=== PATIENT | female | born 1965 | race Caucasian/White ===

== ENCOUNTER 2018-10-31 18:58 | Emergency (ER) | payer MEDICARE, MEDICAID, SELFPAY ==
[2018-10-31 18:58] VITALS: BP 149/87; PULSE 100; RESP 16; TEMP 36.6; O2SAT 96; BMI 38.0
[2018-10-31 19:34] LABS: Absolute Lymphocyte Count 1.42 X10^3/ul (0.83-4.51); Absolute Neutrophil Count 9.2 X10^3/uL (2.0-7.7); Basophil# 0.03 X10^3/uL; Basophil% 0.3 % (0-1); Eosinophil# 0.12 X10^3/uL; Hematocrit 47.9 % (37-47); Hemoglobin 16.5 g/dl (12.0-15.0); Lymphocyte # 1.42 X10^3/ul (4.0); Lymphocyte % 12.1 % (19-41); Mean Corp Hgb Conc 34.4 g/gl (32-36); Mean Corpuscular Hgb 29.5 pg (27.0-32.0); Mean Corpuscular Volume 85.5 fL (81-99); Mean Platelet Vol. 10.9 fl (6.2-12.0); Monocyte# 0.93 X10^3/uL; Monocyte% 7.9 % (0-10); Neutrophil # 9.18 X10^3/uL (2.7-7.7); Neutrophil % 78.4 % (47-70); Platelet Count 262 K/mm3 (150-450); RBC Distribution Width CV 13.5 % (11.6-14.6); RBC Distribution Width SD 42.3 fl (35.1-43.9); White Blood Count 11.7 K/mm3 (4.4-11.0)
[2018-10-31 19:46] LABS: POSITIVE COUNT NO; POSITIVE DIFFERENTIAL NO; POSITIVE MORPHOLOGY NO
[2018-10-31 19:47] LABS: Anion Gap 10 (5-15); BUN 9 mg/dL (7-18); BUN/Creat Ratio 7.8 RATIO (10-20); Chloride 100 mmol/L (98-107); Creatinine, Serum 1.16 mg/dL (0.55-1.02); EST Glomerular Filtration Rate 52 mL/min (>60); Est Glom Filt Rate - Afr Amer 63 mL/min (>60); Estimated Creatinine Clearance 57.88 ml/min; Glucose 404 mg/dL (74-106); Sodium Level 137 mmol/L (136-145)
[2018-10-31 19:58] VITALS: BP 147/88; PULSE 97; RESP 17; O2SAT 95
[2018-10-31 20:02] LABS: Internal QC Validated? YES +Cl - CLEAR BKGD; Pregnancy, Serum, hCG Quali. NEGATIVE Negative
--- NOTE | 2018-10-31 20:03 | CT_ITS ---
STUDY: CT ABDOMEN AND PELVIS WITHOUT CONTRAST REASON FOR EXAM: Female, 53 years old. Right-sided flank pain. RADIATION DOSAGE (If Supplied By Facility): CTDIvol = ( 22.88 ) mGy, DLP = ( 1257.42 ) mGycm TECHNIQUE: Transaxial images were obtained from the dome of the diaphragm to the symphysis pubis without oral contrast, and without intravenous contrast. Sagittal and coronal images were reconstructed. Individualized dose optimization techniques were used for this CT. COMPARISON: CT of the abdomen and pelvis dated January 05, 2014. FINDINGS: The visualized lung bases are unremarkable. The visualized portions of the heart are within normal limits. There is decreased attenuation of the liver consistent with steatosis. The liver is enlarged measuring up to 25.5 cm in greatest dimension. Normal gallbladder and extrahepatic biliary system. Normal spleen. Normal pancreas. Normal bilateral adrenal glands. There is a moderate dilatation of the right renal collecting system similar to previous CT. There is a nonobstructing calculus in the right renal collecting system measuring up to 1.8 cm in greatest dimension. There is moderate right-sided hydroureter. There is a distal right ureteral calculus measuring approximately 4.4 mm. Appears to be multifocal areas of parenchymal loss with a lower pole left kidney posterolaterally to previous ischemia or infection. This is probably unchanged since the previous CT There is a small hiatal hernia. There is no evidence for dilated bowel, ascites or pneumoperitoneum. The small bowel has a grossly normal appearance. Stool is visible throughout the descending and transverse colon with scattered diverticula. The descending colon is not distended which gives the appearance of thickened davey. There is non-visualization of the appendix. There is minimal atherosclerotic calcification of the abdominal aorta, without a demonstrated aneurysm. Normal inferior vena cava. Normal retroperitoneum. Normal urinary bladder. There is absence of the uterus consistent with a prior hysterectomy. Normal abdominal wall. There are diffuse degenerative changes of the visualized spine. CT/Abdomen/Pelvis without Cont IMPRESSION: 1. Moderate right-sided hydronephrosis and hydroureter secondary to a distal ureteral calculus. 2. Nonobstructing right-sided renal calculus. 3. Hepatomegaly and hepatic steatosis. 4. There is a small hiatal hernia. Electronically Signed: Ale Story MD at 21:11 EDT , Service support ,
[2018-10-31] MEDS: Ketorolac 30 MG/ML Syringe IV (20:30)
[2018-10-31] MEDS: 0.9% Normal Saline 1,000 ML 999 ML IV (20:30)
[2018-10-31 20:37] LABS: Bacteria 0 SEEN /hpf (None Seen); Mucous, Urine 0 SEEN /hpf (<or=2+); Red Blood Cells-Urine 0 SEEN /hpf (0-5)
[2018-10-31 20:39] LABS: Color, Urine Yellow (Yellow); Glucose, Dipstick 1000 mg/dl (Normal); Ketone-Dipstick 15 mg/dl (Negative); Leukocyte Esterase-Dipstick 25 /ul (Negative); Nitrite-Dipstick Negative (Negative); Occult Blood-Urine 150 /ul (Negative); Protein-Dipstick Negative (Negative); Urine Bilirubin Dipstick Negative (Negative); Urine Clarity Sl. Cloudy (Clear); Urine Urobilinogen Normal (Normal)
[2018-10-31 20:48] LABS: Squamous Epithelial Cells - UA 0-5 SEEN /hpf (5-10); White Blood Cells 0-5 SEEN /hpf (0-5)
[2018-10-31 21:00] VITALS: BP 157/87; PULSE 89; RESP 16; O2SAT 93
--- NOTE | 2018-10-31 22:58 | ED.VISSUMM ---
- ER Visit Summary Date of Service: 10/31/18 Chief Complaint: Flank pain History of Present Illness: The patient is a 53 F with right flank pain that started at 5 PM today. It is severe. It came on suddenly. Patient has a history of kidney stones. Physical Examination: Afebrile and vital signs unremarkable. Right flank tender to palpation. Abdomen otherwise nontender. No other pertinent findings. Test Results: Urinalysis unremarkable. test negative. Glucose 404, creatinine 1.16. White count 11.[address] abdomen and pelvis showed right-sided hydroureter and hydronephrosis with a 4.4 mm stone in the distal ureter. Other incidental findings as listed in the separate CT report. Emergency Department Course and Treatment: Patient was treated with Toradol and fluids. She had improvement in her pain. History and exam and work-up were consistent with a ureter stone. Patient has an established urologist and will follow-up as an outpatient. She is in pain management and will use her home Percocet. She was advised to return for intractable pain. She was prescribed Flomax and Zofran. Patient will monitor her sugar and take her diabetes medications as prescribed. Discharge. Treatment Plan: As above Disposition: Discharge Impression: Ureteral colic This note was generated with [employer] dictation software. It may contain incorrect words, spelling, and punctuation that were not noted in review of the chart prior to signing ED Disposition - Plan for ED Patient: Referrals: Efrain Du,Out of [Primary Care Provider] -
--- NOTE | 2018-10-31 23:01 | ED.DEP ---
ED Disposition - Plan for ED Patient: Instructions: ED Stone Renal W Colic, ED Hyperglycemia Diabetic Prescriptions: Ondansetron [Zofran Odt] 4 mg PO Q8H PRN PRN #10 tab PRN Reason: Nausea Tamsulosin HCl [Flomax] 0.4 mg PO DAILY #7 cap Additional Instructions: follow up with your urologist
[2018-10-31 23:04] VITALS: BP 150/78; PULSE 79; RESP 14; O2SAT 96
== END 2018-10-31 23:08 | disposition home or self-care (01) ==
LOC: ED 20:21
PROVIDERS: Emergency Provider Emergency Medicine
DX: N13.2 Hydronephrosis with renal and ureteral calculous obstruction (principal); K44.9 Diaphragmatic hernia without obstruction or gangrene; K76.0 Fatty (change of) liver, not elsewhere classified; E11.9 Type 2 diabetes mellitus without complications; Z87.442 Personal history of urinary calculi; Z79.84 Long term (current) use of oral hypoglycemic drugs; Z79.899 Other long term (current) drug therapy; Z72.0 Tobacco use
CPT/HCPCS: 74176; 80048; 81001; 84703; 85025; 96361; 96374; 99284; J7030; A4216

== ENCOUNTER 2019-05-12 07:34 | Emergency (ER) | payer MEDICARE, SELFPAY ==
[2019-05-12 07:35] VITALS: BP 165/116; PULSE 90; RESP 24; TEMP 36.6; BMI 39.5
--- NOTE | 2019-05-12 07:46 | CT_ITS ---
STUDY: CT ABDOMEN AND PELVIS WITHOUT CONTRAST REASON FOR EXAM: Female, 53 years old. RADIATION DOSAGE (If Supplied By Facility): CTDIvol = ( 22.04 ) mGy, DLP = ( 1194.82 ) mGycm TECHNIQUE: Transaxial images were obtained from the dome of the diaphragm to the symphysis pubis without oral contrast, and without intravenous contrast. Sagittal and coronal images were reconstructed. Individualized dose optimization techniques were used for this CT. COMPARISON: None. FINDINGS: The visualized lung bases are unremarkable. The visualized portions of the heart are within normal limits. The liver is enlarged measures 24 cm in its craniocaudal dimension. No obvious focal lesion noted within the liver. Spleen is not enlarged. Both adrenal glands are within normal limits. The right kidney is slightly malrotated with evidence of hydronephrosis and dilated ureter down to the pelvis where there is a small stone(0.5cm) above the UV junction causing obstructive uropathy. There is exophytic calcified lesion measures 2.7 x 1.4 cm involving the posterior aspect of the malrotated kidney this is suspicious for tumor. The left kidney shows tiny calcification in the lower half of the kidney. Focal the atrophy seen in the lower aspect of the left kidney could be due to old pyelonephritis. No hydronephrosis is seen on the left side. Otherwise both kidneys are normal in size.. Normal visualized stomach. Normal small intestine. Normal colon. The appendix is visualized and appears normal. Normal abdominal aorta. Normal inferior vena cava. Normal retroperitoneum. Normal urinary bladder. Normal abdominal wall. Normal osseous structures. CT/Abdomen/Pelvis without Cont IMPRESSION: Smaller stone in the distal right ureter causing obstructive uropathy. Calcified lesion posterior aspect of the right kidney which is malrotated this is suspicious for 2 small to moderate. Hepatomegaly. Electronically Signed: Veronica Robertson, at 9:43 EST Tel , Service support ,
--- NOTE | 2019-05-12 07:47 | ED.VIS.GEN ---
History of Present Illness Chief Complaint: Flank Pain Informant: Patient Onset: Today, Hours - 3 Current Severity: Moderate Maximum Severity: Severe Narrative: Patient presents with right flank pain radiating into her right lower abdominal region. She has a history of kidney stones and this feels similar. This started about 3 hours ago and woke her up from sleep. She has no fever chills or dysuria. She has no chest pain shortness of breath. Pain is sharp stabbing and moderate but there have been episodes where it has been severe. Past Medical History - Allergies and Home Meds Allergies/Adverse Reactions: Allergies duloxetine [From Cymbalta] Allergy (Verified 05/12/19 07:37) Swelling povidone-iodine [From Betadine] Allergy (Verified 05/12/19 07:37) Swelling shellfish derived Allergy (Verified 05/12/19 07:37) Swelling soap [From Betadine] Allergy (Verified 05/12/19 07:37) Itching ivory soap Primary Care Physician: Po Ewing MD [Primary Care Provider] - Past Medical History: - - COPD, chronic renal insufficiency, diabetes. Hypertension Surgical History: hysterectomy, - - , multiple right kidney surgery for stones,hysterectomy, tubal ligation Smoking Status: Current every day smoker - Family History Maternal Family History: Reports: No pertinent history Paternal Family History: Reports: No pertinent history Sibling Family History: Reports: No pertinent history Review of Systems General: Denies: Fever ENT: Denies: Sore throat Cardiovascular: Denies: Chest pain Respiratory: Denies: Dyspnea, Cough Gastrointestinal: Reports: Abdominal pain, Nausea. Denies: Diarrhea, Constipation Genitourinary: Denies: Dysuria, Hematuria Musculoskeletal: Reports: Back pain Skin: Denies: Rash Neurological: Denies: Headache, Weakness Psych: Denies: Depression Endocrine: Denies: Polyuria Hematologic: Denies: Easy bruising Allergy: Denies: Uticaria Physical Exam Vital Signs/Narrative: Vital Signs Temp Pulse Resp BP 05/12/19 07:35 97.8 F 90 24 H 165/116 H General: Acute Distress Head: Normocephalic Eyes: Perrl, EOMI ENT: Moist mucous membranes Cardiovascular: Regular rate, Regular rhythm Respiratory: No distress, CTA bilaterally, - - It is documented that she is tachypneic, however when I saw her she was breathing at about 18/min. She had clear lungs Abdomen: Soft, - - There is some right lower abdominal tenderness most of her pain is in the right flank region : - - Deferred Back: CVA tenderness Extremities: Nontender, No edema Skin: Normal color Neurological: Normal Sensation Psychological: - - Somewhat anxious Diagnostic/Tx/Re-eval - Medical Decision Making Patient is found to have a 5 mm stone. This is distal ureter. Her pain is significantly improved. She has analgesia at home I will refer to urology. She does not have a urinary tract infection although she does have blood and glucose in her urine I am worried about an infection since both blood and glucose are nidus for infection. I will treat prophylactically Discharge stable condition ED Disposition - Plan for ED Patient: Disposition: Home or Assisted Living Diagnosis: Renal colic on right side, Right kidney stone Instructions: KIDNEY STONE w/ Colic Prescriptions: Smz/Tmp Ds [Bactrim Ds] 1 tab PO BID #10 tab Prescription Printed Tamsulosin HCl [Flomax] 0.4 mg PO DAILY #5 cap Prescription Printed Ondansetron [Zofran Odt] 4 mg PO Q8H PRN PRN #10 tab PRN Reason: Nausea Prescription Printed Referrals: Nuno Collins MD [STAFF PHYSICIAN] - 2 Days
[2019-05-12] MEDS: Ketorolac 30 MG/ML Syringe 15 MG IV (08:01)
[2019-05-12] MEDS: 0.9% Normal Saline 1,000 ML 1000 ML IV (08:01)
[2019-05-12] MEDS: HYDROmorphone 1 MG/ML Syringe IV (08:02)
[2019-05-12] MEDS: Ondansetron 4 MG/2 ML Vial IV (08:02)
[2019-05-12 08:08] LABS: Red Blood Cells-Urine 0 SEEN /hpf (0-5)
[2019-05-12 08:15] LABS: Absolute Lymphocyte Count 1.36 X10^3/uL (0.83-4.51); Absolute Neutrophil Count 6.5 X10^3/uL (2.0-7.7); Basophil# 0.08 X10^3/uL; Basophil% 0.9 % (0-1); Eosinophil# 0.12 X10^3/uL; Eosinophils% 1.4 % (0-5); Hematocrit 49.8 % (37-47); Hemoglobin 16.6 g/dL (12.0-15.0); Lymphocyte # 1.36 X10^3/ul (4.0); Lymphocyte % 15.5 % (19-41); Mean Corp Hgb Conc 33.3 g/dL (32-36); Mean Corpuscular Hgb 28.3 pg (27.0-32.0); Mean Platelet Vol. 10.8 fl (6.2-12.0); Monocyte# 0.67 X10^3/uL; Monocyte% 7.6 % (0-10); NRBC Flagged by Analyzer 0 % (0-5); Neutrophil # 6.49 X10^3/uL (2.7-7.7); Platelet Count 248 K/mm3 (150-450); RBC Distribution Width SD 40.3 fl (35.1-43.9); Red Blood Count 5.86 M/mm3 (4.2-5.4); White Blood Count 8.8 K/mm3 (4.4-11.0)
[2019-05-12 08:17] LABS: Color, Urine Yellow (Yellow); Glucose, Dipstick 1000 mg/dl (Normal); Ketone-Dipstick 5 mg/dl (Negative); Leukocyte Esterase-Dipstick Negative /ul (Negative); Nitrite-Dipstick Negative (Negative); Occult Blood-Urine 250 /ul (Negative); Protein-Dipstick 15 mg/dl (Negative); Specific Gravity, Urine 1.025 (1.002-1.030); Urine Bilirubin Dipstick Negative (Negative); Urine Clarity Clear (Clear); Urine Urobilinogen Normal (Normal)
[2019-05-12 08:30] LABS: Anion Gap 9 (5-15); BUN 17 mg/dL (7-18); Calcium,Total 9.3 mg/dL (8.5-10.1); Chloride 105 mmol/L (98-107); EST Glomerular Filtration Rate 62 mL/min (>60); Est Glom Filt Rate - Afr Amer 75 mL/min (>60); Estimated Creatinine Clearance 67.14 ml/min; Glucose 327 mg/dL (74-106); Potassium 3.8 mmol/L (3.5-5.1); Sodium Level 137 mmol/L (136-145)
[2019-05-12 08:39] LABS: White Blood Cells 0-5 SEEN /hpf (0-5)
[2019-05-12 08:40] LABS: Bacteria 1+ /hpf (None Seen); Mucous, Urine RARE /hpf (<or=2+); Squamous Epithelial Cells - UA 10-25 SEEN /hpf (5-10); Yeast-Urine 2+ /hpf (None Seen)
[2019-05-12 10:36] VITALS: RESP 14
== END 2019-05-12 10:37 | disposition home or self-care (01) ==
PROVIDERS: Emergency Provider Emergency Medicine; Family Provider Family Medicine; PCP Family Medicine
DX: N20.1 Calculus of ureter (principal); I12.9 Hypertensive chronic kidney disease with stage 1 through stage 4 chronic kidney disease, or unspecified chronic kidney disease; N18.9 Chronic kidney disease, unspecified; E11.22 Type 2 diabetes mellitus with diabetic chronic kidney disease; J44.9 Chronic obstructive pulmonary disease, unspecified; F17.200 Nicotine dependence, unspecified, uncomplicated; Z87.442 Personal history of urinary calculi; Z79.84 Long term (current) use of oral hypoglycemic drugs; Z79.899 Other long term (current) drug therapy
CPT/HCPCS: 74176; 80048; 81001; 85025; 99283; J7030; A4216; J2405

== ENCOUNTER 2019-05-20 11:30 | Outpatient (RCR) | payer MEDICARE, MEDICAID, SELFPAY ==
--- NOTE | 2019-04-21 10:52 | HP.PTEVAL_ITS ---
Patient's Visit Information WINSTON SNYDER is a 53 year old F referred to Physical Therapy by QUIQUE LEIGH with a diagnosis of B knee OA. Date of Evaluation: 04/21/19 Physical Therapist: MAK Alba - Visit Plan Frequency: 2x /Week Duration: 4 Weeks Plan: 2X/ week for 4 weeks for B knee AROM, functional strength of hip and knee, gait training, stretching with HEP and heat/ice if needed. - Subjective Findings: pt is bone on bone in B knees and they have been giving her cortizone injections and they help for awhile. Next step is to get gel injections but they said she has to do PT first. SHe reports that her knees have always hurt. Her knee pain is worse with walking, standing, stairs, sit to stands. She does not sleep well at night due to her legs hurting. She is not working. She has back pain and tingling in B legs and that has been going on for awhile. She has been seeing pain management Dr for about 4 years now. She has worked in PT before for her knee pain on land and in the water and it has not helped. pt reports that she has fallen down the step several times but is not related to her knees. - Pain R knee pain Pain Intensity (Out of 10): 9 Pain Intensity Range: 9 Comment: with standing with more pressure L knee pain Pain Intensity (Out of 10): 9 Pain Intensity Range: 9 Comment: with standing with more pressure - Objective Gait: Walks with normal gait pattern with L forefoot abd and slight decrease stride B. Pt is able to walk on heels and toes with a decrease ROM. LE MMT: R knee ext 3+/5 and L knee 4-/5, R knee flexion 3+/5 and L knee flexion 4-/5, B hip flex 4-/5, B hip abd 3+/5. R knee extension 0degrees and Rknee flexion 100 degrees. L knee extension 0 degrees and L knee flexion 116 degrees - Goals Goal 1:: I HEP Goal Time Frame: 4-6 Weeks Goal 2:: Increase B LE strength by 1/2 muscle grade ( at the time of eval: LE MMT: R knee ext 3+/5 and L knee 4-/5, R knee flexion 3+/5 and L knee flexion 4- /5, B hip flex 4-/5, B hip abd 3+/5). Goal Time Frame: 4-6 Weeks Goal 3:: Increase B knee AROM to 0-120 (at time of eval: R knee extension 0degrees and Rknee flexion 100 degrees and L knee extension 0 degrees and L knee flexion 116 degrees). Goal Time Frame: 4-6 Weeks - Rehabilitation Potential Rehabilitation Potential: Good - Anticipated Interventions Thank you for the opportunity to evaluate your patient. For Medicare and Medicare HMO plans, please review the plan of care and approve it. It will need to be FAXED BACK to us at [phone] for Medicare purposes. For Medicare only, by signing this I certify the plan of care. Please let me know if there are questions or concerns regarding this plan of care. Physician Signature: Date:
--- NOTE | 2019-05-20 11:54 | HP.PTDCSUM_ITS ---
HP - PT D/C Summary It has been my pleasure to treat WINSTON SNYDER under orders from QUIQUE LEIGH, for the diagnosis of B knee OA for a total of 8 visit(s). Discharge Date: 05/20/19 Please see the following information for a summary of their discharge status. - Subjective Subjective: Pt reports that she has not had any improvement from PT. SHe reports that she never does... she is waiting to get her shots in her knees - Pain R knee pain Pain Intensity (Out of 10): 8 L knee pain Pain Intensity (Out of 10): 8 - Overall Improvement % Improvement: 0 - Objective Objective/Function: R knee AROM: 0 degrees extension and 110 degrees knee flexion. L knee AROM: -1 degree fro, full extension, 119 degrees knee flexion. R LE MMT: Hip flex 4-/5, knee ext 4-/5, knee flex 4/5, hip abd 4-/5. L LE MMT: Hip flex 4-/5, knee ext 4-/5, knee flex 4/5, hip abd 4/5. Gait: Walks with slight decrease stance time on her R leg. - Goals Goal 1:: I HEP Goal Progress: Goal Met Goal 2:: Increase B LE strength by 1/2 muscle grade ( at the time of eval: LE M MT: R knee ext 3+/5 and L knee 4-/5, R knee flexion 3+/5 and L knee flexion 4- /5, B hip flex 4-/5, B hip abd 3+/5). Goal Progress: Progressing Goal 3:: Increase B knee AROM to 0-120 (at time of eval: R knee extension 0degrees and Rknee flexion 100 degrees and L knee extension 0 degrees and L knee flexion 116 degrees). Goal Progress: Progressing - Plan Plan: DC PT to HEP and back for Physican reassessment. - D/C Information Discharge Comments: DC PT back to physican reassessment If there are questions or concerns regarding this patient's physical therapy, please feel free to call me at [phone]. Thank you for the referral of this patient. Sincerely, Mary Jane Pace, MPT
== END 2019-05-20 19:00 | disposition home or self-care (01) ==
LOC: PT 11:30
PROVIDERS: Family Provider Family Medicine; PCP Family Medicine
DX: M25.561 Pain in right knee (principal); M25.562 Pain in left knee; G89.29 Other chronic pain
CPT/HCPCS: 97110; 97161; 97530

== ENCOUNTER 2022-04-25 12:57 | Emergency (ER) | payer MEDICARE, SELFPAY ==
[2022-04-25 12:58] VITALS: BP 180/101; PULSE 84; RESP 18; TEMP 36.6; O2SAT 98; BMI 38.4
--- NOTE | 2022-04-25 13:48 | CT_ITS ---
STUDY: CT ABDOMEN AND PELVIS WITHOUT CONTRAST REASON FOR EXAM: Female, 56 years old. Right flank pain RADIATION DOSAGE (If Supplied By Facility): CTDIvol = ( 24.03 ) mGy, DLP = ( 1266.70 ) mGycm TECHNIQUE: Transaxial images were obtained from the dome of the diaphragm to the symphysis pubis without oral contrast, and without intravenous contrast. Sagittal and coronal images were reconstructed. Individualized dose optimization techniques were used for this CT. COMPARISON: Comparison is made with prior study dated 05/12/2019. FINDINGS: The visualized lung bases are unremarkable. Coronary artery calcification. Calcification of the mitral valve annulus. Minimal degree of anterior pericardial thickening. There is decreased attenuation of the liver consistent with steatosis. Hepatomegaly. Normal gallbladder and extrahepatic biliary system. Normal spleen. Normal pancreas. Normal bilateral adrenal glands. Moderate degree of the right hydronephrosis and hydroureter down to the ureterovesical junction. No obstructive calculus is seen at this time. Surgical clips are seen in the right adnexa along the course of the distal ureter. There is evidence of a 1.8 cm calculus in the lower pole calyx of the right kidney. Stable 1.7 cm cyst in the midportion of the right kidney. Normal left kidney. Normal visualized stomach. Normal small intestine. Normal colon. There is non-visualization of the appendix. There is scattered atherosclerotic calcification of the abdominal aorta, without a demonstrated aneurysm. Normal inferior vena cava. There is borderline retroperitoneal lymphadenopathy with enlarged nodes no greater than 10mm in the short axis diameter. Normal urinary bladder. There is absence of the uterus consistent with a prior hysterectomy. Normal abdominal wall. There are diffuse degenerative changes of the visualized lumbar spine. CT/Abdomen/Pelvis without Cont IMPRESSION: Stable right hydronephrosis and right hydroureter down to the ureterovesical junction without an obstructive calculus at this time. Surgical clips are seen in the right hemipelvis most likely affecting the right distal ureter. 1.8 cm calculus in the lower pole calyx of the right kidney. Hepatomegaly and fatty infiltration of the liver. Electronically Signed: Davide English MD at 15:00 EST ,
--- NOTE | 2022-04-25 13:51 | EDS_ITS ---
HPI History of Present Illness Chief Complaint: Flank Pain Detail of Chief Complaint: Right-sided flank pain Informant: patient Onset/Context/Timing Current Severity: 03/26 Narrative Narrative: Patient presents with right-sided flank pain that started initially approximately a week ago. Patient was seen at [facility] where she had a urinalysis and was diagnosed with a UTI. Patient also states that she had a CT scan that she was told she may have passed a kidney stone. Patient does have history of kidney stones. Patient was started on antibiotics. Patient continues to complain of severe pain in her right back that radiates all the way down her right leg. Patient has history of chronic back pain with history of sciatica but states this feels different than her sciatica and feels like what her kidney stones typically feel like. Patient continues to complain of dysuria. She denies hematuria. She denies fever. She is had no vomiting. She denies any trauma to her back. Patient denies weakness to the extremities. She denies loss of bowel or bladder function. Prior similar symptoms: Yes PFSH PFS Medical History (Updated 04/25/22 @ 15:[address] Walter Keller, DO) Kidney calculi Home Medications hydrocodone-acetaminophen 5-325mg 5mg-325mg 1 tab PO Q6H PRN PRN Pain ##12 02/16/14 [Rx Last Taken Unknown] apremilast 10 mg (4)-20 mg (4)-30 mg (19) tablets in a dose pack (Otezla Starter) 1 ea PO BID 10/31/18 [History Last Taken Unknown] metformin 500 mg tablet,extended release 24hr 500 mg PO DAILY 10/31/18 [History Last Taken Unknown] ondansetron 4 mg disintegrating tablet 4 mg PO Q8H PRN PRN Nausea #10 tabs 10/31/18 [Rx Last Taken Unknown] sitagliptin phosphate 100 mg tablet (Januvia) 100 mg PO DAILY 10/31/18 [History Last Taken Unknown] tamsulosin 0.4 mg capsule 0.4 mg PO DAILY #7 caps 10/31/18 [Rx Last Taken Unknown] ondansetron 4 mg disintegrating tablet 4 mg PO Q8H PRN PRN Nausea #10 tabs 05/12/19 [Rx Last Taken Unknown] sulfamethoxazole 800 mg-trimethoprim 160 mg tablet 1 tab PO BID #10 tabs 05/12/19 [Rx Last Taken Unknown] tamsulosin 0.4 mg capsule 0.4 mg PO DAILY #5 caps 05/12/19 [Rx Last Taken Unknown] phenazopyridine 200 mg tablet (Pyridium) 200 mg PO TID #10 tabs 04/25/22 [Rx Last Taken Unknown] sulfamethoxazole 800 mg-trimethoprim 160 mg tablet 1 tab PO BID #14 TABLETS 04/25/22 [Rx Last Taken Unknown] Allergy/AdvReac Type Severity Reaction Status Date / Time duloxetine [From Cymbalta] Allergy Swelling Verified 04/25/22 12:57 povidone-iodine Allergy Swelling Verified 04/25/22 12:57 [From Betadine] shellfish derived Allergy Swelling Verified 04/25/22 12:57 soap [From Betadine] Allergy Itching Verified 04/25/22 12:57 Surgical History no surgical history Social History Smoking Status: Current every day smoker tobacco type: cigarettes ROS ROS ED Review of Systems ROS Unobtainable: other Constitutional Constitutional ED: Reports lethargy; Denies chills, fever(s), sweats or weight loss Eyes Eyes: Denies blurry vision, change in vision or diplopia ENT ENT ED: Denies rhinorrhea or sore throat Cardiovascular Cardiovascular: Denies chest pain, orthopnea or racing heartbeat Respiratory/Chest Respiratory/Chest: Denies cough, dyspnea, dyspnea on exertion, orthopnea or sputum Gastrointestinal Gastrointestinal: Reports abdominal pain; Denies diarrhea, nausea or vomiting Genitourinary Genitourinary ED: Denies dysuria, hematuria or urinary frequency Musculoskeletal Musculoskeletal: Reports back pain; Denies arthralgias, myalgias or neck pain Integumentary Denies abscess, Abrasions or rash Neurologic Neurologic: Denies headache(s) or weakness Psychiatric Psychiatric: Denies anxiety, depression or suicidal thoughts Endocrine Endocrinology: Denies polydipsia, polyphagia or polyuria Hematologic/Lymphatic Hematologic/Lymphatic: Denies easy bleeding, easy bruising or lymphadenopathy Allergic/Immunologic Allergic/Immunologic ED: Denies mouth swelling, tongue swelling or urticaria EXAM Physical Exam Const Vital Signs: 04/25/22 12:58 Temperature 97.8 F Temperature Source Temporal Pulse Rate 84 Respiratory Rate 18 Blood Pressure 180/101 H Blood Pressure Mean 127 Pulse Ox 98 Oxygen Delivery Method Room Air Positive well nourished and well developed General Appearance ED: well developed and NAD HEENT Reports TM's clear and moist mucous membranes normocephalic and atraumatic; Negative for trauma or tenderness Tympanic Membrane ED: Yes TM's clear Eyes PERRL and EOMs intact bilaterally General Eye ED: Negative for pale conjunctiva or scleral icterus Neck no lymphadenopathy, supple and no JVD General: Negative for tenderness Chest Wall inspection of chest normal and palpation of chest normal Chest: Negative for tenderness Resp normal respiratory effort and clear to auscultation bilaterally Effort and Inspection: Negative for respiratory distress or pain with movement Auscultation: Negative for rhonchi, wheezes or diminished lung sounds Cardio regular rate, regular rhythm, S1 normal heart sound, S2 normal heart sound and no murmurs Peripheral Pulses: pulses 2+ throughout GI normal to inspection, nondistended, normoactive bowel sounds, soft to palpation, non-distended and no masses GI Narrative: Mild tenderness over the right lower quadrant. No rebound, rigidity, or peritoneal signs. Back/Spine no thoracic nor lumbar tenderness Back/Spine Narrative: CVA tenderness on the right. Negative straight leg raises. Deep tendon reflexes are plus 2 out of 4 bilaterally at the patella and Achilles. Patient has normal 5 extension. Normal sensation to light touch. Extremity normal to inspection General Extremety ED: Negative for edema General Extremity: Negative for edema Neuro oriented x3, CN's II-XII intact bilaterally, no sensory deficits noted and gait normal Sensorium / Orientation: awake, alert, oriented to person, oriented to place and oriented to time Motor Exam: strength 5/5 throughout and strength abnormal Psych mental status grossly normal Skin no rashes or lesions noted and no wounds MDM MDM MDM Narrative Medical decision making narrative: IV line established on arrival. Patient medicated with Toradol as well as morphine and Zofran and she had some good pain relief with that. Lab work-up consistent with an elevated white count of 20.3. Chemistries unremarkable. Urine was positive for nitrites as well as 25-50 WBCs and RBCs as well as +[address] scan flank obtained showed stable right [place] ureter when compared with prior CT from 2019 does not appear significantly changed. Discussed with patient admission for IV antibiotics given her elevated white count however she states that she has had issues with her white count in the past for which she is seeing a car cooper. She has had no fever and no vomiting and would like to go home. I did find out that she has been taking Keflex. I will switch her to Bactrim. Patient will also be given a prescription for Pyridium. She is advised to return if worsening pain, fever, vomiting, or condition should worsen anyway. Clinically I do not feel patient is septic. Patient will be seeing her kidney specialist in 2 days. Lab Data Attestation: I reviewed the patient's lab results. Labs: Laboratory Results - last 24 hr 04/25/22 04/25/22 04/25/22 14:08 14:08 14:08 WBC 20.3 H RBC 5.83 H Hgb 16.8 H Hct 50.7 H MCV 87.0 MCH 28.8 MCHC 33.1 RDW Std Deviation 43.3 RDW Coeff of Zoraida 13.7 Plt Count 300 MPV 10.7 Immature Gran % (Auto) 0.500 Neut % (Auto) 83.7 H Lymph % (Auto) 8.7 L [place] % (Auto) 5.9 Eos % (Auto) 0.8 Baso % (Auto) 0.4 Absolute Neuts (auto) 17.0 H Absolute Lymphs (auto) 1.77 Nucleated RBC % 0 Sodium 136 Potassium 4.0 Chloride 102 Carbon Dioxide 27.0 Anion Gap 7 BUN 18 Creatinine 1.05 H Estim Creat Clear Calc 64.01 Est GFR (MDRD) Af Amer 70 Est GFR (MDRD) Non-Af 58 L BUN/Creatinine Ratio 17.1 Glucose 264 H Calcium 9.0 Urine Color Yellow Urine Clarity Cloudy Urine pH 6.0 Ur Specific [place] 1.025 Urine Protein 100 H Urine Glucose (UA) 1000 H Urine Ketones Negative Urine Occult Blood 250 H Urine Nitrite Positive H Urine Bilirubin Negative Urine Urobilinogen Normal Ur Leukocyte Esterase 500 H Urine RBC 25-50 SEEN Urine WBC 25-50 SEEN Ur Squamous Epith Cells 0 SEEN Urine Bacteria 1+ Urine Mucus 0 SEEN Radiography Diagnostic Testing: Clinical Impression(s) from Imaging Studies Abdomen/Pelvis CT 04/25/22 13:48 IMPRESSION: Stable right hydronephrosis and right hydroureter down to the ureterovesical junction without an obstructive calculus at this time. Surgical clips are seen in the right hemipelvis most likely affecting the right distal ureter. 1.8 cm calculus in the lower pole calyx of the right kidney. Hepatomegaly and fatty infiltration of the liver. Electronically Signed: Davide English MD at 15:00 EST , Discharge Plan Triage Chief Complaint: Flank Pain ED Provider: Walter Keller Dx/Rx/DC Orders Clinical Impression: Back pain, UTI (urinary tract infection) Instructions: ED Back Pain (Acute or Chronic), ED Cystitis Female Adult Prescriptions: New phenazopyridine [Pyridium] 200 MG tablet 200 mg PO TID Qty: 10 0RF sulfamethoxazole-trimethoprim [sulfamethoxazole-trimethoprim] 1 TABLET tablet 1 tab PO BID Qty: 14 0RF No Action hydrocodone-acetaminophen 1 TABLET tablet 1 tab PO Q6H PRN PRN (Reason: Pain) Qty: 12 0RF metformin 500 MG tablet extended release 24hr 500 mg PO DAILY sitagliptin phosphate [Januvia] 100 MG tablet 100 mg PO DAILY Label Comments: TK 1 T PO QD apremilast [Otezla Starter] 1 EACH tablets,dose pack 1 ea PO BID tamsulosin 0.4 MG capsule 0.4 mg PO DAILY Qty: 7 0RF ondansetron 4 MG tablet 4 mg PO Q8H PRN PRN (Reason: Nausea) Qty: 10 0RF ondansetron 4 MG tablet 4 mg PO Q8H PRN PRN (Reason: Nausea) Qty: 10 0RF sulfamethoxazole-trimethoprim 1 TABLET tablet 1 tab PO BID Qty: 10 0RF tamsulosin 0.4 MG capsule 0.4 mg PO DAILY Qty: 5 0RF Primary Care Provider: Po Ewing Referrals: Po Ewing MD [Primary Care Provider] - 3-5 Days Disposition Disposition: Home, Self Care
[2022-04-25] MEDS: Ondansetron 4 MG/2 ML Vial IV (14:09)
[2022-04-25] MEDS: Ketorolac 15 MG/ML Vial IV (14:09)
[2022-04-25] MEDS: Morphine 4 MG/ML Syringe IV (14:09)
[2022-04-25] MEDS: 0.9% Normal Saline 1,000 ML 150 ML IV (14:14)
[2022-04-25 14:17] LABS: Absolute Lymphocyte Count 1.77 X10^3/uL (0.83-4.51); Basophil# 0.08 X10^3/uL; Basophil% 0.4 % (0-1); Eosinophil# 0.17 X10^3/uL; Eosinophils% 0.8 % (0-5); Hematocrit 50.7 % (37-47); Hemoglobin 16.8 g/dL (12.0-15.0); Lymphocyte # 1.77 X10^3/ul (0.83-4.51); Lymphocyte % 8.7 % (19-41); Mean Corp Hgb Conc 33.1 g/dL (32-36); Mean Corpuscular Hgb 28.8 pg (27.0-32.0); Mean Platelet Vol. 10.7 fl (6.2-12.0); Monocyte# 1.19 X10^3/uL; Monocyte% 5.9 % (0-10); NRBC Flagged by Analyzer 0 % (0-5); Neutrophil # 16.96 X10^3/uL (2.7-7.7); Neutrophil % 83.7 % (47-70); Platelet Count 300 K/mm3 (150-450); RBC Distribution Width CV 13.7 % (11.6-14.6); RBC Distribution Width SD 43.3 fl (35.1-43.9); Red Blood Count 5.83 M/mm3 (4.2-5.4); White Blood Count 20.3 K/mm3 (4.4-11.0)
[2022-04-25 14:30] LABS: Anion Gap 7 (5-15); BUN 18 mg/dL (7-18); BUN/Creat Ratio 17.1 RATIO (10-20); Chloride 102 mmol/L (98-107); Creatinine, Serum 1.05 mg/dL (0.55-1.02); EST Glomerular Filtration Rate 58 mL/min (>60); Est Glom Filt Rate - Afr Amer 70 mL/min (>60); Estimated Creatinine Clearance 64.01 ml/min; Glucose 264 mg/dL (74-106); Sodium Level 136 mmol/L (136-145)
[2022-04-25 14:46] LABS: Mucous, Urine 0 SEEN /hpf (<or=2+); Squamous Epithelial Cells - UA 0 SEEN /hpf (5-10)
[2022-04-25 14:50] LABS: Color, Urine Yellow (Yellow); Glucose, Dipstick 1000 mg/dl (Normal); Ketone-Dipstick Negative (Negative); Leukocyte Esterase-Dipstick 500 /ul (Negative); Nitrite-Dipstick Positive (Negative); Occult Blood-Urine 250 /ul (Negative); Protein-Dipstick 100 mg/dl (Negative); Specific Gravity, Urine 1.025 (1.002-1.030); Urine Bilirubin Dipstick Negative (Negative); Urine Clarity Cloudy (Clear); Urine Urobilinogen Normal (Normal)
[2022-04-25 14:59] LABS: Bacteria 1+ /hpf (None Seen); Red Blood Cells-Urine 25-50 SEEN /hpf (0-5); White Blood Cells 25-50 SEEN /hpf (0-5)
[2022-04-25 15:00] VITALS: BP 125/84; PULSE 95; RESP 15; O2SAT 99
[2022-04-25] MEDS: Ceftriaxone 1 GM/50 ML BAG IV (15:28)
== END 2022-04-25 16:15 | disposition home or self-care (01) ==
PROVIDERS: Emergency Provider Emergency Medicine; PCP Family Medicine; Visit Provider Emergency Medicine
DX: N39.0 Urinary tract infection, site not specified (principal); G89.29 Other chronic pain; M54.9 Dorsalgia, unspecified; F17.210 Nicotine dependence, cigarettes, uncomplicated
CPT/HCPCS: 74176; 80048; 81001; 85025; 87086; 87088; 87186; 96365; 96375; 99283; A4216; J2405